=== PATIENT | female | born 1995 | race Hispanic/Latino ===

== ENCOUNTER 2017-04-06 08:31 | Emergency (ER) | payer SELFPAY ==
[2017-04-06 09:56] LABS: #Basophils 0.1 thou/uL (0.0-0.2); #Lymphocytes 2.5 thou/uL (1.20-3.40); #Monocytes 0.4 thou/uL (0.11-0.59); #Neutrophils 2.9 thou/uL (1.40-6.50); %Basophils 1.5 % (0.0-1.0); %Eosinophils 0.5 % (0.0-10.0); %Lymphocytes 41.7 % (21.0-51.0); %Monocytes 6.8 % (0.0-10.0); Hematocrit 39.8 % (36.0-47.0); Mean Platelet Volume 6.9 fL (7.4-10.4); Red Blood Cell (RBC) Count 4.97 mill/uL (4.20-5.40); White Blood Cell (WBC) Count 5.9 thou/uL (4.8-10.8)
[2017-04-06 10:05] LABS: Bilirubin Negative (Negative); Blood, Urine Large (Negative); Glucose, Urine (Dipstick) Negative (Negative); Ketone, Urine Negative (Negative); Nitrite Negative (Negative); Protein, Urine (Dipstick) Negative (Neg-Trace); Urobilinogen 0.2 mg/dL (0.2-1.0)
[2017-04-06 10:08] LABS: Bacteria/HPF Rare-Few HPF (None Seen); Hyaline Casts/LPF 0-3 HYALINE CAST LPF (0-3 Hyaline); RBC/HPF GREATER THAN 50-TNTC HPF (0-3); Squamous Epithelial 0-3 HPF (0-3); WBC/HPF 0-3 HPF (0-3)
[2017-04-06 10:18] LABS: Anion Gap 13 mmol/L (10-20); BUN (Urea Nitrogen) 16 mg/dL (7.0-18.7); Calc. Creatinine Clearance 0 mL/min (70-130); Calcium 9.2 mg/dL (7.8-10.44); Carbon Dioxide 24 mmol/L (22-29); Chloride 105 mmol/L (98-107); Estimated GFR-MDRD Greater than 90
[2017-04-12 09:22] LABS: Routine O & P Final report (.)
== END 2017-04-06 11:29 | disposition home or self-care (01) ==
LOC: ERS 08:31
DX: K52.9 Noninfective gastroenteritis and colitis, unspecified (principal)
CPT/HCPCS: 80048; 81003; 81015; 81025; 82274; 85025; 87177; 87324; 87449; 96360; 96361

== ENCOUNTER 2017-10-14 12:00 | Emergency (ER) | payer SELFPAY ==
[2017-10-14] MEDS ORDERED: Dexamethasone 10 MG/ML VIAL ONE (12:23)
[2017-10-14] MEDS ORDERED: Ketorolac Tromethamine 30 MG/ML VIAL ONE (12:23)
[2017-10-14] MEDS ORDERED: Metoclopramide HCl 10 MG/2 ML VIAL IVP SCH (12:45)
== END 2017-10-14 13:43 | disposition home or self-care (01) ==
LOC: ERS 12:00
DX: G43.909 Migraine, unspecified, not intractable, without status migrainosus (principal)
CPT/HCPCS: 96361; 96374; 96375; J1100; J1885; J2765

== ENCOUNTER 2018-01-15 08:32 | Outpatient (CLI) | payer MEDICAID | END 2018-01-15 08:33 | disposition home or self-care (01) | LOC: BICULT 08:32 | PROVIDERS: ATTEND Student in an Organized Health Care Education/Training Program | DX: N91.5 Oligomenorrhea, unspecified (principal) | CPT/HCPCS: 76856 ==

== ENCOUNTER 2018-09-10 20:48 | Emergency (ER) | payer BC, MEDICAID | END 2018-09-10 22:45 | disposition home or self-care (01) | LOC: ERS 20:48 | DX: J20.9 Acute bronchitis, unspecified (principal) | CPT/HCPCS: 87081; 87430; 99283 ==